=== PATIENT | male | born 1990 | race Two or more races ===

== ENCOUNTER → 2017-04-13 | Outpatient (CLI) | payer OTHER ==
--- NOTE | 2017-04-13 13:20 | KCIC ---
PROCEDURE Three-view bilateral shoulder radiographs 04/13/2017 HISTORY Bilateral shoulder pain. FINDINGS AP internal and external rotation and transscapular digital radiographs of both shoulders were obtained. No fracture or dislocation of either shoulder is seen. No significant degenerative changes are seen. IMPRESSION Negative study. Electronically signed by: Arjun Flores MD (April 13, 2017 13:19:10)
== END | disposition home or self-care (01) ==
LOC: KCIC 12:19
PROVIDERS: ATTEND Physician Assistant Medical
DX: M25.511 Pain in right shoulder (principal); M25.512 Pain in left shoulder
CPT/HCPCS: 73030